=== PATIENT | male | born 1940 | race Two or more races ===

== ENCOUNTER 2025-09-01 22:24 | Emergency (ER) | payer OTHER ==
[~2025-09-01] VITALS: Ht 170.2 cm; Wt 75.7 kg
[2025-09-01 22:31] VITALS: BP 121/67; O2SAT 99
[2025-09-01] MEDS ORDERED: ACETAMINOPHEN 500 MG GEL..CAP PO STA (23:44)
[2025-09-02] MEDS ORDERED: ACETAMINOPHEN500 M2 PO (01:57)
== END 2025-09-02 02:10 ==
LOC: ER 22:24
DX: S50.902A Unspecified superficial injury of left elbow, initial encounter (principal); W18.39XA Other fall on same level, initial encounter; Y93.F9 Activity, other caregiving; Y92.59 Other trade areas as the place of occurrence of the external cause; Y99.8 Other external cause status; I10 Essential (primary) hypertension